=== PATIENT | female | born 1940 | race Caucasian/White ===

== ENCOUNTER → 2016-05-11 | Outpatient (CLI) | payer OTHER ==
[~2016-05-11] MED LIST: ADVAIR; ALBUTEROL17 GM INH; AMIODARONE HCL400 MG PO; ASPIRIN81 M1 PO; ATIVAN0.5 MG PO; BENADRYL25 M1 PO; BENICAR PO; BYSTOLIC10 MG PO; CARVEDILOL12.5 MG PO; COMBIVENT INH14.7 GM; ELIQUIS5 MG PO; EVISTA60 M1 PO; FAMOTIDINE PO; FISH OIL 1,0001 CAP PO; FUROSEMIDE40 MG PO; K-DUR20 ME1 PO; LEVOXYL0.137 MG PO; LIPITOR20 MG PO; NABUMETONE PO; PLENDIL5 MG PO; PREDNISONE PO; RANITIDINE; SIMVASTATIN40 MG PO; TRIAMTERENE-HC1 EACH PO; ZESTRIL40 MG PO
--- NOTE | ~2016-05-11 | HM ---
Unit #: [id number] #: [id number] Patient: GILLES MCCAULEY [id number] [address] [id number] MR#: [id number] NAME: GILLES MCCAULEY : 1940 SEX: F STUDY DATE/TIME: 05/11/2016 UNIT: [facility] ROOM: STUDY DESCRIPTION: Attending Physician: Cisco Hansen M.D. Referring Physician: Cisco Hansen M.D. Primary Care Physician: Zack Sen M.D. CARDIOLOGY REPORT EXAM 24-HOUR HOLTER REPORT DATE APPLIED 05/11/2016 DATE SCANNED 05/16/[address] Hansen READ BY Dr. Burris INDICATION Mitral valve regurgitation FINDINGS Underlying rhythm is sinus rhythm with an average heart rate of 61 beats, minimum heart rate of 42 beats per minute, and a maximum heart rate of 87 beats per minute. The minimum heart rate of 42 beats per minute is noted at 8:22 a.m. The maximum heart rate of 87 beats per minute is noted at 8:46 p.m. Patient had a 2.22 second pause noted at 8:29 a.m. Patient had 136 single multifocal premature ventricular complexes noted. Patient had 2343 single premature atrial complexes and 51 atrial couplets noted. Patient did not record any symptoms. CONCLUSION 1. Underlying rhythm is sinus rhythm with an average heart rate of 61 beats per minute, minimum heart rate of 42 beats per minute, and a maximum heart rate of 87 beats per minute. 2. No sustained atrial or ventricular arrhythmias noted. 3. Longest pause noted was a 2.22 second pause noted at 8:29 a.m. 4. Occasional single multifocal premature ventricular complexes noted. 5. Frequent single premature atrial complexes and atrial couplets noted. 6. Patient did not record any symptoms. 1. Dictated by... Dasha Burris M.D. PA/melvi Unit #: [id number] #: [id number] Patient: GILLES MCCAULEY TD: 06/12/2016 21:56 JOB #: [id number] CARDIOLOGY REPORT Page 1 of 1 X Dasha Burris MD <ELECTRONICALLY SIGNED> 09/16/16 [facility] HOLTER MONITOR REPORT
== END | disposition home or self-care (01) ==
LOC: CECH 05:56
DX: Z01.818 Encounter for other preprocedural examination (principal); I34.0 Nonrheumatic mitral (valve) insufficiency; I08.1 Rheumatic disorders of both mitral and tricuspid valves; I70.0 Atherosclerosis of aorta; I51.7 Cardiomegaly; I48.91 Unspecified atrial fibrillation; I42.9 Cardiomyopathy, unspecified
CPT/HCPCS: 93225; 93226; 93312; J2250; J3010